=== PATIENT | male | born 1940 | race Asian ===

== ENCOUNTER → 2016-11-24 | Outpatient (CLI) | payer MEDICARE, OTHER ==
[~2016-11-24] MED LIST: AMIO200T42 PO; ASPI-515 PO; ASPI-621 PO; ASPI325T4 PO; ATOR10TA9 PO; ATOR40TA78 PO; BLOOD PRESSURE MEDICATION; CLOP75TA PO; FURO-93 PO; FURO20TA3 PO; GABA300C10 PO; HYDR-3144 PO; HYDR-3307 PO; INSU100I13 SC; INSU100I18 SQ; INSU100V10 SQ; INSU100V8 SQ; LISI-167 PO; LISI5TAB7 PO; LORA0.5T PO; METF10002 PO; METO25TA35 PO/NG; PANT40TA5 PO; POTA10CA PO; POTA10TA5 PO; TRIA1CAP3 PO
== END | disposition home or self-care (01) ==
LOC: CFH 10:00
PROVIDERS: ATTEND Internal Medicine Cardiovascular Disease
DX: C50.922 Malignant neoplasm of unspecified site of left male breast (principal); C34.90 Malignant neoplasm of unspecified part of unspecified bronchus or lung
CPT/HCPCS: G0206

== ENCOUNTER → 2016-11-28 | Outpatient (CLI) | payer MEDICARE, OTHER | END | disposition home or self-care (01) | LOC: CVU 12:33 | PROVIDERS: ATTEND Internal Medicine Cardiovascular Disease | DX: I82.431 Acute embolism and thrombosis of right popliteal vein (principal); I10 Essential (primary) hypertension; E11.9 Type 2 diabetes mellitus without complications; I25.10 Atherosclerotic heart disease of native coronary artery without angina pectoris; Z95.1 Presence of aortocoronary bypass graft | CPT/HCPCS: 93922 ==

== ENCOUNTER 2017-08-25 12:35 | Emergency (ER) | payer MEDICARE, OTHER ==
[~2017-08-25] VITALS: Ht 175.3 cm; Wt 80.0 kg
[~2017-08-25 12:35] MED LIST changes: +ASPI325T17 PO; -ASPI325T4 PO; -HYDR-3144 PO; +HYDR-3245 PO; -INSU100V10 SQ; +INSU100V11 SQ
[2017-08-25] MEDS ORDERED: SODIUM CHLORIDE 0.9% 1,000 ML IV ONE (12:41)
[2017-08-25] MEDS ORDERED: SODIUM CHLORIDE 0.9% 1,000ML IVBOLUS ONE ×2 (13:00→15:00)
[2017-08-25] MEDS ORDERED: SODIUM CHLORIDE FLUSH 10ML SYR IVF ONE (13:00)
[2017-08-25 13:08] LABS: BASOPHILS % (AUTO) 1 % (0-1); EOSINOPHILS # (AUTO) 0.12 x10^3/uL (0-0.4); EOSINOPHILS % (AUTO) 1 % (1-7); LYMPHOCYTES # (AUTO) 2.79 x10^3/uL (1-3.4); LYMPHOCYTES % (AUTO) 29 % (22-44); MD NO; MEAN CORPUSCULAR HEMOGLOBIN 32.9 pg (27.5-34.5); MEAN CORPUSCULAR HGB CONC 33.8 g/dL (33.2-36.2); MEAN CORPUSCULAR VOLUME 97.4 fL (81-97); MEAN PLATELET VOLUME 8.2 fL (7.4-10.4); MONOCYTES # (AUTO) 0.79 x10^3/uL (0.2-0.8); MONOCYTES % (AUTO) 8 % (2-9); NEUTROPHILS # (AUTO) 5.91 x10^3/uL (1.8-6.8); NEUTROPHILS % (AUTO) 61 % (42-75); PLATELET COUNT 195 x10^3/uL (130-400); RED BLOOD COUNT 4.94 x10^6/uL (4.38-5.82); RED CELL DISTRIBUTION WIDTH 13.7 % (9.4-14.8)
[2017-08-25 13:14] LABS: ALANINE AMINOTRANSFERASE 41 U/L (12-78); ALBUMIN 3.6 g/dL (3.4-5.0); ANION GAP 9 mmol/L (5-15); CALCIUM 8.6 mg/dL (8.5-10.1); CHLORIDE 104 mmol/L (98-107); CREATININE 1.47 mg/dL (0.7-1.3)
[2017-08-25 13:16] LABS: ALKALINE PHOSPHATASE 48 U/L (45-117); BILIRUBIN,TOTAL 0.5 mg/dL (0.2-1.0); TOTAL PROTEIN 7.8 g/dL (6.4-8.2)
[2017-08-25 13:29] LABS: ACETONE, SERUM Negative (Negative)
[2017-08-25] MEDS ORDERED: INSULIN REGULAR 100 UNITS/ML, 3ML VIAL IVPush ONE (14:30)
[2017-08-25 16:55] VITALS: BP 142/72
== END 2017-08-25 16:57 | disposition home or self-care (01) ==
LOC: ED 14:56
DX: E11.65 Type 2 diabetes mellitus with hyperglycemia (principal); Z95.1 Presence of aortocoronary bypass graft
CPT/HCPCS: 36415; 80053; 82010; 82800; 83735; 83930; 85025; 93005; 96361; 96374; 99291; J7030; 82962

== ENCOUNTER 2017-12-21 08:55 | Inpatient (IN) | payer MEDICARE ==
[~2017-12-21] VITALS: Ht 175.3 cm; Wt 64.0 kg
[~2017-12-21 08:55] MED LIST changes: +DONE5TAB52 PO; +RIVA15TA PO
[2017-12-21] MEDS ORDERED: SODIUM CHLORIDE FLUSH 10ML SYR IVF ONE (09:30)
[2017-12-21] MEDS ORDERED: SODIUM CHLORIDE 0.9% 1,000ML IVBOLUS ONE (09:30)
[2017-12-21 09:42] LABS: PH, VENOUS 7.348 pH (7.320-7.420)
[2017-12-21 09:44] LABS: BASOPHILS # (AUTO) 0.05 x10^3/uL (0-0.1); BASOPHILS % (AUTO) 1 % (0-1); EOSINOPHILS # (AUTO) 0.29 x10^3/uL (0-0.4); EOSINOPHILS % (AUTO) 4 % (1-7); LYMPHOCYTES # (AUTO) 1.81 x10^3/uL (1-3.4); LYMPHOCYTES % (AUTO) 27 % (22-44); MD NO; MEAN CORPUSCULAR HEMOGLOBIN 31.8 pg (27.5-34.5); MEAN CORPUSCULAR HGB CONC 33.4 g/dL (33.2-36.2); MEAN CORPUSCULAR VOLUME 95.3 fL (81-97); MEAN PLATELET VOLUME 7.5 fL (7.4-10.4); MONOCYTES # (AUTO) 0.62 x10^3/uL (0.2-0.8); MONOCYTES % (AUTO) 9 % (2-9); NEUTROPHILS # (AUTO) 3.86 x10^3/uL (1.8-6.8); NEUTROPHILS % (AUTO) 58 % (42-75); PLATELET COUNT 227 x10^3/uL (130-400); RED BLOOD COUNT 4.65 x10^6/uL (4.38-5.82); RED CELL DISTRIBUTION WIDTH 13.7 % (9.4-14.8)
[2017-12-21 09:55] LABS: ALBUMIN 3.1 g/dL (3.4-5.0); ANION GAP 8 mmol/L (5-15); CALCIUM 8.1 mg/dL (8.5-10.1); CHLORIDE 105 mmol/L (98-107)
[2017-12-21 09:58] LABS: ACETONE, SERUM Negative (Negative)
[2017-12-21 10:01] LABS: ALANINE AMINOTRANSFERASE 17 U/L (12-78); ALKALINE PHOSPHATASE 43 U/L (45-117); BILIRUBIN,TOTAL 0.5 mg/dL (0.2-1.0); CREATININE 1.09 mg/dL (0.7-1.3); TOTAL PROTEIN 6.9 g/dL (6.4-8.2)
[2017-12-21] MEDS ORDERED: TAMO20TA PO (10:16)
[2017-12-21] MEDS ORDERED: METO25TA35 PO (10:16)
[2017-12-21] MEDS ORDERED: INSU100I32 SQ-INSULIN (10:16)
[2017-12-21] MEDS ORDERED: ENOXAPARIN 80 MG/0.8 ML SQ ONE (13:00)
[2017-12-21 13:07] LABS: INTERNATIONAL NORMALIZED RATIO 0.98 (0.93-1.1); PROTHROMBIN TIME 10.2 Seconds (9.6-11.5)
[2017-12-21] MEDS ORDERED: ENOXAPARIN 80 MG/0.8 ML ONE (13:18)
[2017-12-21] MEDS ORDERED: SODIUM CHLORIDE FLUSH 10ML SYR IVF PRN (13:30)
[2017-12-21] MEDS ORDERED: ONDANSETRON 2MG/ML, 2ML IVPush PRN (14:30)
[2017-12-21] MEDS ORDERED: hydrALAzine 20 MG/ML, 1ML IVPush PRN (14:30)
[2017-12-21] MEDS ORDERED: ACETAMINOPHEN 325 MG TABLET PO PRN (14:30)
[2017-12-21] MEDS: ENOXAPARIN 80 MG/0.8 ML SQ SCH ×2 (14:42→21:31)
[2017-12-21 14:48] LABS: FREE T4 (FREE THYROXINE) 1.09 ng/dL (0.76-1.46); THYROID STIMULATING HORMONE 5.11 mIU/L (0.358-3.740)
[2017-12-21 14:57] LABS: HEMOGLOBIN A1C 11.7 % (4.2-6.3)
[2017-12-21] MEDS: INSULIN LISPRO 100 UNITS/ML, PEN SQ-INSULIN SCH ×2 (16:20→21:31)
[2017-12-21 18:00] VITALS: BP 144/64
[2017-12-21 19:08] VITALS: BP 126/70
[2017-12-21] MEDS: METOPROLOL TARTRATE 25 MG TABLET PO SCH (20:43)
[2017-12-21] MEDS: DONEPEZIL 5 MG TABLET PO SCH (20:43)
[2017-12-21] MEDS: ATORVASTATIN 40 MG TABLET PO SCH (20:43)
[2017-12-21] MEDS: LISINOPRIL 10 MG TABLET PO SCH (20:43)
[2017-12-21] MEDS: INSULIN GLARGINE 100 UNITS/ML, PEN SQ-INSULIN SCH (21:32)
[2017-12-22 02:20] VITALS: BP 109/55
[2017-12-22] MEDS: ASPIRIN 81 MG TABLET EC PO SCH (06:02)
[2017-12-22 06:26] LABS: CULTURE INDICATED? NO; MICROSCOPIC NOT IND
[2017-12-22 06:45] VITALS: BP 125/65
[2017-12-22] MEDS: INSULIN LISPRO 100 UNITS/ML, PEN SQ-INSULIN SCH ×4 (07:00→22:24)
[2017-12-22] MEDS: LISINOPRIL 10 MG TABLET PO SCH ×2 (08:33→22:23)
[2017-12-22] MEDS: ENOXAPARIN 60 MG/0.6 ML SQ SCH ×2 (08:36→22:23)
[2017-12-22] MEDS: METOPROLOL TARTRATE 25 MG TABLET PO SCH ×2 (09:00→22:24)
[2017-12-22] MEDS ORDERED: TAMOXIFEN CITRATE 20 MG PO SCH (09:00)
[2017-12-22 13:05] VITALS: BP 130/67
[2017-12-22] MEDS: TAMOXIFEN 10 MG TABLET PO SCH (16:51)
[2017-12-22 18:30] VITALS: BP 129/58
[2017-12-22] MEDS: ATORVASTATIN 40 MG TABLET PO SCH (22:24)
[2017-12-22] MEDS: DONEPEZIL 5 MG TABLET PO SCH (22:24)
[2017-12-22] MEDS: INSULIN GLARGINE 100 UNITS/ML, PEN SQ-INSULIN SCH (22:25)
[2017-12-22 23:51] VITALS: BP 122/68
[2017-12-23] MEDS: ASPIRIN 81 MG TABLET EC PO SCH (06:45)
[2017-12-23] MEDS: INSULIN LISPRO 100 UNITS/ML, PEN SQ-INSULIN SCH (07:00)
[2017-12-23 07:19] VITALS: BP 108/60
[2017-12-23] MEDS: ENOXAPARIN 60 MG/0.6 ML SQ SCH ×2 (09:05→21:15)
[2017-12-23] MEDS: LISINOPRIL 10 MG TABLET PO SCH ×2 (10:52→21:16)
[2017-12-23] MEDS: METOPROLOL TARTRATE 25 MG TABLET PO SCH ×2 (10:53→21:17)
[2017-12-23] MEDS ORDERED: LISI-167 PO (14:27)
[2017-12-23] MEDS ORDERED: ASPI-621 PO (14:27)
[2017-12-23] MEDS ORDERED: RIVA1TAB PO (14:27)
[2017-12-23 14:48] VITALS: BP 116/66
[2017-12-23] MEDS: TAMOXIFEN 10 MG TABLET PO SCH (16:25)
[2017-12-23] MEDS ORDERED: INSULIN LISPRO 100 UNITS/ML, PEN SQ-INSULIN ONE (17:00)
[2017-12-23] MEDS ORDERED: INSULIN GLARGINE 100 UNITS/ML, PEN SQ-INSULIN ONE (17:00)
[2017-12-23 18:36] VITALS: BP 128/67
[2017-12-23] MEDS: ATORVASTATIN 40 MG TABLET PO SCH (21:16)
[2017-12-23] MEDS: DONEPEZIL 5 MG TABLET PO SCH (21:16)
[2017-12-24 00:42] VITALS: BP 122/62
[2017-12-24] MEDS: ASPIRIN 81 MG TABLET EC PO SCH (06:14)
[2017-12-24 07:30] VITALS: BP 135/74
[2017-12-24] MEDS: TAMOXIFEN 10 MG TABLET PO SCH (07:33)
[2017-12-24] MEDS: METOPROLOL TARTRATE 25 MG TABLET PO SCH ×2 (07:34→21:33)
[2017-12-24] MEDS: LISINOPRIL 10 MG TABLET PO SCH ×2 (07:34→21:33)
[2017-12-24] MEDS: ENOXAPARIN 60 MG/0.6 ML SQ SCH ×2 (07:34→21:34)
[2017-12-24] MEDS ORDERED: INSULIN GLARGINE 100 UNITS/ML, PEN SQ-INSULIN SCH ×3 (09:00→21:00)
[2017-12-24] MEDS ORDERED: INSU100I32 SQ-INSULIN (11:08)
[2017-12-24] MEDS ORDERED: INSULIN GLARGINE 100 UNITS/ML, PEN SQ-INSULIN ONE ×2 (11:30→21:00)
[2017-12-24 14:27] VITALS: BP 110/57
[2017-12-24 14:33] VITALS: BP 130/72
[2017-12-24] MEDS ORDERED: INSULIN LISPRO 100 UNITS/ML, PEN SQ-INSULIN ONE (16:00)
[2017-12-24 19:11] VITALS: BP 153/70
[2017-12-24] MEDS: DONEPEZIL 5 MG TABLET PO SCH (21:33)
[2017-12-24] MEDS: ATORVASTATIN 40 MG TABLET PO SCH (21:33)
[2017-12-25 01:04] VITALS: BP 111/64
[2017-12-25 07:41] VITALS: BP 99/64
[2017-12-25] MEDS: LISINOPRIL 10 MG TABLET PO SCH (07:47)
[2017-12-25] MEDS: METOPROLOL TARTRATE 25 MG TABLET PO SCH (07:47)
[2017-12-25] MEDS ORDERED: INSU100I32 SQ-INSULIN ×2 (07:52→07:55)
[2017-12-25] MEDS: ENOXAPARIN 60 MG/0.6 ML SQ SCH (07:53)
[2017-12-25] MEDS: ASPIRIN 81 MG TABLET EC PO SCH (07:53)
[2017-12-25] MEDS: TAMOXIFEN 10 MG TABLET PO SCH (07:54)
[2017-12-25] MEDS ORDERED: METF500T PO (07:57)
[2017-12-25] MEDS ORDERED: INSU100V8 SQ (10:54)
[2017-12-25] MEDS ORDERED: INSULIN GLARGINE 100 UNITS/ML, PEN SQ-INSULIN SCH ×2 (11:30→12:00)
[2017-12-25 15:32] VITALS: BP 137/65
[2017-12-25] MEDS ORDERED: INSULIN LISPRO 100 UNITS/ML, PEN SQ-INSULIN SCH (16:30)
== END 2017-12-25 17:14 | disposition home health service (06) | DRG 299 ==
LOC: ED 11:54 → EDIP 13:18 → 3NW 18:03
PROVIDERS: ADMIT Hospitalist; ATTEND Hospitalist
DX: I82.432 Acute embolism and thrombosis of left popliteal vein (principal); E43 Unspecified severe protein-calorie malnutrition; G93.40 Encephalopathy, unspecified; I82.412 Acute embolism and thrombosis of left femoral vein; E11.65 Type 2 diabetes mellitus with hyperglycemia; F03.90 Unspecified dementia, unspecified severity, without behavioral disturbance, psychotic disturbance, mood disturbance, and anxiety; Z86.711 Personal history of pulmonary embolism; E78.5 Hyperlipidemia, unspecified; I25.10 Atherosclerotic heart disease of native coronary artery without angina pectoris; Z79.01 Long term (current) use of anticoagulants; Z85.3 Personal history of malignant neoplasm of breast; Z86.718 Personal history of other venous thrombosis and embolism; Z90.12 Acquired absence of left breast and nipple; Z91.14 Patient's other noncompliance with medication regimen; Z95.1 Presence of aortocoronary bypass graft
CPT/HCPCS: 36415; 71045; 80053; 81003; 82010; 82803; 82962; 83036; 83735; 84439; 84443; 85025; 85610; 85730; 93005; 96372; 99285; J1650; 92523-GN; J7030